=== PATIENT | male | born 1975 | race Caucasian/White ===

== ENCOUNTER 2024-08-04 13:35 | Emergency (ER) | payer SELFPAY ==
--- NOTE | 2024-08-04 13:46 | ED_ITS ---
<Statement entered by Madisyn Beasley DO - 08/04/24 18:57> I was consulted by the SHARMIN, and we discussed the complexity of the problems being addressed. I approved the treatment and management plan for this patient's care in the emergency department, thus performing a substantive portion of the medical decision making. Madisyn Beasley DO Discharge Plan Disposition Patient Disposition: Home, Self-Care Condition: Good Prescriptions Prescriptions: New doxycycline hyclate 100 mg capsule 100 mg PO BID 10 Days Qty: 20 0RF itptusehetcridq-sykbfastu-TZ [Bromfed DM] 2-30-10 mg/5 mL syrup 5 ml PO Q4H PRN (Reason: sinus symptoms) Qty: 118 0RF promethazine 25 mg tablet 25 mg PO Q4H PRN (Reason: nausea and vomiting) Qty: 10 0RF Referrals Follow up/Referrals: Robert Wilks DO [Primary Care Provider] - See instructions Activity Restrictions/Add. Instructions Additional Instructions/Restrictions: Start with a brat diet bananas rice applesauce toast until you are having normal bowel movements again then you may transition to regular food. Follow-up with your PCP for no improvement or worsening signs and symptoms or return to the ER as needed. Clinical Impressions Clinical Impression: Gastroenteritis, Lower resp. tract infection Instructions Patient Instructions: Nausea and Vomiting-Adult Print Language Print Language: Grenadian Discharge ED Provider: Madisyn Beasley General Adult HPI <KELSEY Frias - Last Filed: 08/04/24 16:36> General Chief complaint: Nausea/Vomiting/Diarrhea Stated complaint: weakness, dehydration, vomiting, severe cramps Time Seen by Provider: 08/04/24 13:44 History of Present Illness HPI narrative: Patient presents for evaluation of nausea vomiting and abdominal cramping. Patient has essentially been sick for about 3 weeks now. He had upper respiratory tract infections starting 3 weeks ago that he is still having symptoms of with congestion and nonproductive dry hacking cough and over the last 24 hours he has had nausea vomiting diarrhea and abdominal cramping. He denies fever but he also reports that he is unable to tolerate anything by mouth today. He denies shortness of breath chest pain hemoptysis hematochezia melena hematemesis. Related Data Previous Rx's ?Medication ?Instructions ?Recorded epohayqvhukpirs-wqttfascfiwyjqg-MY 5 ml PO Q4H PRN sinus symptoms 08/04/24 2 mg-30 mg-10 mg/5 mL oral syrup #118 mL (Bromfed DM) doxycycline hyclate 100 mg capsule 100 mg PO BID 10 days #20 caps 08/04/24 promethazine 25 mg tablet 25 mg PO Q4H PRN nausea and 08/04/24 vomiting #10 tabs Allergies Allergy/AdvReac Type Severity Reaction Status Date / Time No Known Allergies Allergy Verified 08/04/24 14:21 PFSH <KELSEY Frias - Last Filed: 08/04/24 16:36> PFS Disclaimer: The information contained in this section may have been updated after the patient was seen, as this information can be updated by other users. Social History (Updated 08/04/24 @ 15:15 by Jonathan Colón MD) Smoking Status: Former smoker alcohol intake: never current occupational status: other Travel in the last 8 weeks: None Have you lived/traveled outside [place] in past 30 days?: No Contact w/someone who lives/traveled outside US past 30 days?: No Exposure to someone with infectious disease in past 14 days?: No Do you have a fever (greater than 100.4 F or 38 C)?: No Have you tested positive for COVID-19: No Exposed to someone with COVID-19 in past 14 days?: No Do you have a sore throat?: No Do you have a cough?: No Do you have any weakness?: No Do you have any diarrhea?: No Are you experiencing any unusual bleeding?: No Do you have any muscle aches/pain?: No Do you have any abdominal pain?: No Are you experiencing loss of taste or smell?: No <KELSEY Frias - Last Filed: 08/04/24 16:36> ROS Obtained: Yes Systems reviewed as appropriate & no additional complaints except as documented Physical Exam <KELSEY Frias - Last Filed: 08/04/24 16:36> General General appearance: alert and in no apparent distress Eye Eye exam: Present EOMI Respiratory Respiratory exam: Present normal lung sounds bilaterally Cardiovascular Cardiovascular exam: Present regular rate Neurological Exam Neurological exam: Present alert and oriented X3 Medical Decision Making <KELSEY Frias Last Filed: 08/04/24 16:36> Medical Records Medical records reviewed: Yes I reviewed the patient's medical records. Screening: Per USPSTF and CDC recommendations, given the prevalence of disease in our region, it is our hospital?s policy to screen for HIV and viral Hepatitis for all patients aged 18 and over and those with ongoing risk factors. Vital Signs: 08/04/24 13:51 08/04/24 14:00 08/04/24 14:15 Temperature 99 F Temperature Source Oral Pulse Rate 82 82 Pulse Rate [Left] 80 Respiratory Rate 16 Blood Pressure 133/93 H 133/93 H Blood Pressure [Right Arm] 161/109 H Blood Pressure Mean [Right Arm] 126 Blood Pressure Source Blood Pressure Source [Right Arm] Automatic Cuff Blood Pressure Position Blood Pressure Position [Right Arm] Sitting 02 Sat by Pulse Oximetry 98 97 98 Oxygen Delivery Method Room Air Room Air Room Air 08/04/24 14:30 08/04/24 16:25 Temperature 98.9 F Temperature Source Oral Pulse Rate 90 80 Pulse Rate [Left] Respiratory Rate 18 Blood Pressure 129/83 127/80 Blood Pressure [Right Arm] Blood Pressure Mean [Right Arm] Blood Pressure Source Automatic Cuff Blood Pressure Source [Right Arm] Blood Pressure Position Sitting Blood Pressure Position [Right Arm] 02 Sat by Pulse Oximetry 95 Oxygen Delivery Method Room Air Room Air Lab Data Lab results reviewed: Yes I reviewed the patient's lab results. Lab Results 08/04/24 13:48: WBC 14.7 H, RBC 5.14, Hgb 16.7, Hct 47.0, MCV 91.4, MCH 32.5 H, MCHC 35.5 H, RDW 12.1, Plt Count 373, MPV 9.7, Neut % (Auto) 90.3 H, Lymph % (Auto) 3.1 L, [place] % (Auto) 5.6, Eos % (Auto) 0.5, Baso % (Auto) 0.2, Neut # (Auto) 13.3 H, Lymph # (Auto) 0.5 L, [place] # (Auto) 0.8, Eos # (Auto) 0.1, Baso # (Auto) 0.0, Total Counted 100, Neutrophils % (Manual) 92 H, Lymphocytes % (Manual) 3 L, Monocytes % (Manual) 4, Eosinophils % (Manual) 1, Platelet Estimate Normal, RBC Morphology Kn, Sodium 133 L, Potassium 4.8, Chloride 101, Carbon Dioxide 26, Anion Gap 10.8, BUN 13, Creatinine 1.30 H, Estimated Creat Clear 110, Estimated GFR 59, Est GFR ( Amer) 71, Glucose 123 H, Calcium 9.4, Magnesium 1.9, Total Bilirubin 1.4 H, AST 32, ALT 26, Alkaline Phosphatase 107, Total Protein 7.5, Albumin 4.4, Globulin 3.1, Albumin/Globulin Ratio 1.4 08/04/24 13:49: D-Dimer 0.86 H 08/04/24 13:48 08/04/24 13:48 Orders (Tests/Meds): ED MEDICATIONS Discontinued Medications Generic Name Dose Route Start Last Admin Trade Name Freq PRN Reason Stop Dose Admin Acetaminophen 1,000 mg 08/04/24 13:57 08/04/24 14:27 Acetaminophen 1,000mg/100ml Vial IV 08/04/24 13:58 1,000 mg ONCE ONE Administration Lactated Ringer's 1,000 mls @ 999 mls/hr 08/04/24 13:57 08/04/24 14:27 Lactated Ringer's 1000 Ml Bag IV 08/04/24 14:57 999 mls/hr .Q1H1M ONE Administration Nicardipine HCl 25 mg/ Sodium 250 mls @ 50 mls/hr 08/04/24 14:21 Chloride IV 09/03/24 14:20 .Q5H PIPE Protocol 5 MG/HR Ondansetron HCl 4 mg 08/04/24 13:57 08/04/24 14:27 Ondansetron 4mg/2ml Vial IV 08/04/24 13:58 4 mg ONCE ONE Administration Promethazine HCl 12.5 mg 08/04/24 14:12 08/04/24 14:26 Promethazine Hcl 25mg/Ml 1ml Vial IV 08/04/24 14:13 12.5 mg ONCE ONE Administration Sodium Chloride 25 ml 08/04/24 14:12 08/04/24 14:26 Sodium Chloride 0.9% 25ml Bag IV 08/04/24 14:13 25 ml ONCE ONE Administration ORDERS Category Date Time Status Chest XR 2 view (NOT portable) [XR chest 2V] Stat Exams 08/04/24 13:57 Completed CBC w/Auto Diff [Complete Blood Count Auto Diff] Stat Lab 08/04/24 13:48 Completed CMP [Comprehensive Metabolic Panel] Stat Lab 08/04/24 13:48 Completed D-Dimer Stat Lab 08/04/24 13:49 Completed Magnesium Stat Lab 08/04/24 13:48 Completed Medical Decision Narrative: In summary patient is a 49-year-old male who presents to the emergency department for evaluation of 3 weeks of cough and congestion and now nausea vomiting diarrhea and abdominal cramping. Patient is hemodynamically stable upon arrival, afebrile. Physical exam is remarkable for a coarse dry hacking cough but clear breath sounds at the bases, mild diffuse abdominal tenderness to palpation but no rebound or guarding or rigidity. Bowel sounds hyperactive.. Differential diagnosis includes atypical pneumonia versus bronchitis versus gastroenteritis versus infectious or bacterial diarrhea.. Initial workup will be conducted with hematologic labs COVID and flu swabs diarrhea panel if patient is able to provide a specimen chest x-ray. Initial interventions include crystalloid bolus Toradol Tylenol Phenergan. Initial workup reviewed by me and his white count is 14.7 with an absolute neutrophil count of 13.3 his D-dimer is 0.86 and by years criteria PE is ruled out, chemistry panel is significant for sodium of 133 but normal electrolytes a creatinine of 1.3 with preserved GFR. Upon repeat evaluation patient had significant improvement after fluids and Phenergan.. Given this patient is appropriate for discharge with prescription for doxycycline with with first dose given here and Bromfed and Phenergan sent to his pharmacy. Patient given strict return precautions. I was consulted by the SHARMIN, and we discussed the complexity of the problems being addressed. I approved the treatment and management plan for this patient's care in the emergency department, thus performing a substantive portion of the medical decision making. Patient has multiple sick contacts and likely has serial viral infections however given the duration of symptoms is very likely that he has atypical pulmonary infection given the prevalence in the community. Workup and repeat evaluation largely pending at time of transfer of care to the oncoming physician, Dr. Beasley. Jonathan Colón MD <Jonathan Colón MD - Last Filed: 08/04/24 15:15> [place] Inquiry Pt receiving controlled substance: No Vital Signs: 08/04/24 13:51 08/04/24 14:00 08/04/24 14:15 Temperature 99 F Temperature Source Oral Pulse Rate 82 82 Pulse Rate [Left] 80 Respiratory Rate 16 Blood Pressure 133/93 H 133/93 H Blood Pressure [Right Arm] 161/109 H Blood Pressure Mean [Right Arm] 126 Blood Pressure Source Blood Pressure Source [Right Arm] Automatic Cuff Blood Pressure Position Blood Pressure Position [Right Arm] Sitting 02 Sat by Pulse Oximetry 98 97 98 Oxygen Delivery Method Room Air Room Air Room Air 08/04/24 14:30 08/04/24 16:25 Temperature 98.9 F Temperature Source Oral Pulse Rate 90 80 Pulse Rate [Left] Respiratory Rate 18 Blood Pressure 129/83 127/80 Blood Pressure [Right Arm] Blood Pressure Mean [Right Arm] Blood Pressure Source Automatic Cuff Blood Pressure Source [Right Arm] Blood Pressure Position Sitting Blood Pressure Position [Right Arm] 02 Sat by Pulse Oximetry 95 Oxygen Delivery Method Room Air Room Air Lab Data Lab Results 08/04/24 13:48: WBC 14.7 H, RBC 5.14, Hgb 16.7, Hct 47.0, MCV 91.4, MCH 32.5 H, MCHC 35.5 H, RDW 12.1, Plt Count 373, MPV 9.7, Neut % (Auto) 90.3 H, Lymph % (Auto) 3.1 L, [place] % (Auto) 5.6, Eos % (Auto) 0.5, Baso % (Auto) 0.2, Neut # (Auto) 13.3 H, Lymph # (Auto) 0.5 L, [place] # (Auto) 0.8, Eos # (Auto) 0.1, Baso # (Auto) 0.0, Total Counted 100, Neutrophils % (Manual) 92 H, Lymphocytes % (Manual) 3 L, Monocytes % (Manual) 4, Eosinophils % (Manual) 1, Platelet Estimate Normal, RBC Morphology Kn, Sodium 133 L, Potassium 4.8, Chloride 101, Carbon Dioxide 26, Anion Gap 10.8, BUN 13, Creatinine 1.30 H, Estimated Creat Clear 110, Estimated GFR 59, Est GFR ( Amer) 71, Glucose 123 H, Calcium 9.4, Magnesium 1.9, Total Bilirubin 1.4 H, AST 32, ALT 26, Alkaline Phosphatase 107, Total Protein 7.5, Albumin 4.4, Globulin 3.1, Albumin/Globulin Ratio 1.4 08/04/24 13:49: D-Dimer 0.86 H Orders (Tests/Meds): ED MEDICATIONS Discontinued Medications Generic Name Dose Route Start Last Admin Trade Name Sol PRN Reason Stop Dose Admin Acetaminophen 1,000 mg 08/04/24 13:57 08/04/24 14:27 Acetaminophen 1,000mg/100ml Vial IV 08/04/24 13:58 1,000 mg ONCE ONE Administration Lactated Ringer's 1,000 mls @ 999 mls/hr 08/04/24 13:57 08/04/24 14:27 Lactated Ringer's 1000 Ml Bag IV 08/04/24 14:57 999 mls/hr .Q1H1M ONE Administration Nicardipine HCl 25 mg/ Sodium 250 mls @ 50 mls/hr 08/04/24 14:21 Chloride IV 09/03/24 14:20 .Q5H PIPE Protocol 5 MG/HR Ondansetron HCl 4 mg 08/04/24 13:57 08/04/24 14:27 Ondansetron 4mg/2ml Vial IV 08/04/24 13:58 4 mg ONCE ONE Administration Promethazine HCl 12.5 mg 08/04/24 14:12 08/04/24 14:26 Promethazine Hcl 25mg/Ml 1ml Vial IV 08/04/24 14:13 12.5 mg ONCE ONE Administration Sodium Chloride 25 ml 08/04/24 14:12 08/04/24 14:26 Sodium Chloride 0.9% 25ml Bag IV 08/04/24 14:13 25 ml ONCE ONE Administration ORDERS Category Date Time Status Chest XR 2 view (NOT portable) [XR chest 2V] Stat Exams 08/04/24 13:57 Completed CBC w/Auto Diff [Complete Blood Count Auto Diff] Stat Lab 08/04/24 13:48 Completed CMP [Comprehensive Metabolic Panel] Stat Lab 08/04/24 13:48 Completed D-Dimer Stat Lab 08/04/24 13:49 Completed Magnesium Stat Lab 08/04/24 13:48 Completed Medical Decision Narrative: In summary patient is a [age, sex] who presents to the emergency department for evaluation of [complaint]. Patient is [hemodynamically stable/unstable] upon arrival, [febrile/afebrile]. [Unremarkable physical exam, nonfocal exam versus focal remarkable exam]. Differential diagnosis includes [DDx]. Initial workup will be conducted with [hematologic labs, imaging, respiratory swab, describe workup]. Initial interventions include [crystalloid bolus, medications, p.o. challenge, etc.] initial workup reviewed by me [hematologic labs are remarkable for... Imaging remarkable for... Urinalysis remarkable for]. Upon repeat evaluation [patient had acceptable resolution of symptoms, had persistent pain for which additional interventions were conducted (describe interventions), tolerated p.o., was ambulatory, etc.]. Given this [patient is appropriate for discharge at this time and will be discharged with a prescription for... The case was discussed with hospital medicine regarding management and they will admit the patient their service for continued evaluation at this time... Etc.] Places where you can increase complexity: I informally interpreted the patient's chest x-ray or CT read and is remarkable for... Documenting what the manager monitoring shows with rate and rhythm Consideration of test but deferring. Ex: I considered chest x-ray on this patient however given that they have no oxygen requirement and are clear to auscultation all lung palmer will be deferred. Social determinants of health: Given that patient is undomiciled increases complexity. Given that patient has polysubstance abuse compounds all aspects of care I was consulted by the SHARMIN, and we discussed the complexity of the problems being addressed. I approved the treatment and management plan for this patient's care in the emergency department, thus performing a substantive portion of the medical decision making. Patient has multiple sick contacts and likely has serial viral infections however given the duration of symptoms is very likely that he has atypical pulmonary infection given the prevalence in the community. Workup and repeat evaluation largely pending at time of transfer of care to the oncoming physician, Dr. Beasley. Jonathan Colón MD Critical Care <Jonathan Colón MD - Last Filed: 08/04/24 15:15> Critical Care Time Critical Care Time: No
[2024-08-04 13:51] VITALS: BP 161/109; PULSE 80; RESP 16; TEMP 37.2; O2SAT 98; BMI 35.9
--- NOTE | 2024-08-04 13:57 | XR_ITS ---
PROCEDURE INFORMATION: Exam: XR Chest Exam date and time: 08/04/2024 2:25 PM Age: 49 years old Clinical indication: Cough and shortness of breath; Additional info: 2 weeks of cough and uri TECHNIQUE: Imaging protocol: Radiologic exam of the chest. Views: 2 views. COMPARISON: No relevant prior studies available. FINDINGS: Lungs: Unremarkable. No consolidation. Pleural spaces: Unremarkable. No pleural effusion. No pneumothorax. Heart/Mediastinum: Unremarkable. No cardiomegaly. Bones/joints: Unremarkable. IMPRESSION: No acute findings.
[2024-08-04 14:00] VITALS: BP 133/93; PULSE 82; O2SAT 97
[2024-08-04 14:07] LABS: Red Blood Count 5.14 M/mm3 (4.60-6.20); White Blood Count 14.7 K/mm3 (4.8-10.8)
[2024-08-04 14:08] LABS: Basophils % 0.2 % (0.1-2.0); Eosinophils % 0.5 % (0.1-12.0); Hemoglobin 16.7 g/dL (14.1-18.0); Lymphocytes # 0.5 K/mm3 (0.7-4.5); Lymphocytes % 3.1 % (10-50); Mean Corpuscular HGB Conc 35.5 g/dL (31.8-35.4); Mean Corpuscular Hemoglobin 32.5 pg (27.0-31.2); Mean Corpuscular Volume 91.4 fl (80-94); Mean Platelet Volume 9.7 fl (7.4-10.4); Monocytes % 5.6 % (1.7-9.3); Neutrophils # 13.3 K/mm3 (1.8-7.8); Neutrophils % 90.3 % (37.0-80.0); Platelet Count 373 K/mm3 (142-424); Red Cell Distribution Width 12.1 % (11.5-17.5)
[2024-08-04 14:09] LABS: Eosinophils # 0.1 K/mm3 (0.0-0.4); Monocytes # 0.8 K/mm3 (0.1-1.0)
[2024-08-04 14:10] LABS: MANUAL DIFFERENTIAL MANUAL DIFFERENTIAL (MANUAL DIFF)
[2024-08-04 14:15] VITALS: BP 133/93; PULSE 82; O2SAT 98
[2024-08-04] MEDS: SODIUM CHLORIDE 0.9% 25ML BAG 25 ML IV (14:26)
[2024-08-04] MEDS: PROMETHAZINE HCL 25MG/ML 1ML VIAL 12.5 MG IV (14:26)
[2024-08-04] MEDS: ONDANSETRON 4MG/2ML VIAL 4 MG IV (14:27)
[2024-08-04] MEDS: LACTATED RINGERS 1000ML 1,000 ML 999 ML IV (14:27)
[2024-08-04] MEDS: ACETAMINOPHEN 1,000MG/100ML VIAL 1000 MG IV (14:27)
[2024-08-04 14:30] VITALS: BP 129/83; PULSE 90; O2SAT 95
[2024-08-04 14:44] LABS: Eosinophils % 1 % (0-3); Lymphocytes % 3 % (10-50); Monocytes % 4 % (2-9); Neutrophils % 92 % (42-76); Platelet Estimate Normal; RBC Morphology KN; Total Cells Counted 100
[2024-08-04 14:56] LABS: D-Dimer 0.86 ug/mL (0.0-0.5)
[2024-08-04 16:05] LABS: Albumin Level 4.4 g/dl (3.5-5.0); Chloride 101 mmol/L (98-107)
[2024-08-04 16:06] LABS: Potassium 4.8 mmoL/L (3.5-5.1); Sodium 133 mmol/L (136-145)
[2024-08-04 16:08] LABS: Alanine Aminotransferase 26 U/L (12-78); Albumin/Globulin Ratio 1.4 (1.1-1.8); Anion Gap 10.8 mEq/L (5-15); Aspartate Amino Transferase 32 U/L (17-59); Blood Urea Nitrogen 13 mg/dl (9-20); Carbon Dioxide 26 mmol/L (22.0-30.0); Creatinine Clearance Estimated 110 mL/min (50-200); Estimated Glomerular Filt Rate 59 ml/min (>60); GFR (African American) 71 ML/MIN (>60); Globulin 3.1 g/dL (1.3-3.2); Total Protein,Serum 7.5 g/dl (6.3-8.2)
[2024-08-04 16:09] LABS: Alkaline Phosphatase 107 U/L (38-126); Bilirubin,Total 1.4 mg/dl (0.2-1.3); Calcium 9.4 mg/dl (8.4-10.2); Glucose 123 mg/dl (74-100); Magnesium 1.9 mg/dl (1.6-2.3)
[2024-08-04 16:25] VITALS: BP 127/80; PULSE 80; RESP 18; TEMP 37.2; O2SAT 99
== END 2024-08-04 16:33 | disposition home or self-care (01) ==
PROVIDERS: Physician Assistant; Emergency Provider Emergency Medicine; PCP Internal Medicine
DX: K52.9 Noninfective gastroenteritis and colitis, unspecified (principal); J22 Unspecified acute lower respiratory infection; R11.2 Nausea with vomiting, unspecified; R10.9 Unspecified abdominal pain; R09.81 Nasal congestion; R05.8 Other specified cough; R53.1 Weakness; Z59.819 Housing instability, housed unspecified
CPT/HCPCS: 71046; 80053; 83735; 85007; 85025; 85027; 85378; 96361; 96374; 96375; 99283; J0131; J2405; J2550; J7120

== ENCOUNTER 2025-04-28 08:39 | Outpatient (CLI) | payer SELFPAY ==
--- NOTE | 2025-04-28 08:46 | XR_ITS ---
FINAL REPORT CLINICAL HISTORY: Severe neck pain x 1 week, nki COMPARISON: None FINDINGS: 3 views of the cervical spine were obtained. No fracture is present. Alignment is normal. No prevertebral soft tissue swelling is seen. Moderate diffuse degenerative disc disease is most pronounced at C5-6 and C6-7. IMPRESSION: Degenerative changes without acute bony abnormality. Reviewed, Interpreted and Dictated by Smith Ybarra MD Transcribed by Cleopatra Triana Authenticated and [facility]
== END 2025-04-28 23:59 | disposition home or self-care (01) ==
LOC: RAD 08:41
PROVIDERS: PCP Internal Medicine; Visit Provider Internal Medicine
DX: M47.812 Spondylosis without myelopathy or radiculopathy, cervical region (principal)
CPT/HCPCS: 72040

== ENCOUNTER 2025-05-20 11:51 | Outpatient (CLI) | payer SELFPAY ==
--- NOTE | 2025-05-20 11:59 | XR_ITS ---
FINAL REPORT CLINICAL HISTORY: right finger (5th digit) injury, fell last night (05/19) FINDINGS: RIGHT FIFTH FINGER Three views were obtained. There is no fracture or dislocation. The joint spaces appear normal. No soft tissue abnormality is identified. IMPRESSION: No acute process. Reviewed, Interpreted and Dictated by Talia Arce MD Transcribed by Paris Palomino Authenticated and [facility]
== END 2025-05-20 23:59 | disposition home or self-care (01) ==
LOC: RAD 11:53
PROVIDERS: PCP Internal Medicine
DX: S69.91XA Unspecified injury of right wrist, hand and finger(s), initial encounter (principal); W19.XXXA Unspecified fall, initial encounter
CPT/HCPCS: 73140